=== PATIENT | male | born 1955 | race Caucasian/White ===

== ENCOUNTER 2017-06-09 14:49 | Inpatient (IN) | payer OTHER ==
[2017-06-09 16:05] LABS: INR 1.16; PARTIAL THROMBOPLASTIN TIME 31.6 Sec (25.0-35.0); PT RATIO 1.2
[2017-06-09 16:09] LABS: WHITE BLOOD COUNT 6.1 10^3/ul (4.8-10.8)
[2017-06-09 16:09] LABS: ABNORMAL IP MESSAGE 1; HEMATOCRIT 21.1 % (42.0-52.0); MEAN CORPUSCULAR HEMOGLOBIN 28.9 pg (29.0-33.0); MEAN CORPUSCULAR HGB CONC 31.3 g/dl (32.0-37.0); MEAN CORPUSCULAR VOLUME 92.5 fl (82.0-101.0); NUCLEATED RED BLOOD CELLS% 3.1 /100WBC (0.0-0.0); PLATELET COUNT 84 10^3/UL (140-415); POSITIVE DIFF @See below; RED BLOOD COUNT 2.28 10^6/ul (4.70-6.10); RED CELL DISTRIBUTION WIDTH 17.7 % (11.5-14.5)
[2017-06-09 16:12] LABS: ALANINE AMINOTRANSFERASE 23 IU/L (13-69); ALBUMIN 2.9 g/dl (3.3-4.9); ANION GAP 17 (8-16); ASPARTATE AMINO TRANSFERASE 116 IU/L (15-46); BILIRUBIN,INDIRECT 0.2 mg/dl (0-1.1); BILIRUBIN,TOTAL 0.2 mg/dl (0.2-1.3); BLOOD UREA NITROGEN 26 mg/dl (7-20); CALCIUM 8.3 mg/dl (8.4-10.2); CARBON DIOXIDE 25 mmol/L (21-31); CHLORIDE 103 mmol/L (97-110); CREATININE 0.87 mg/dl (0.61-1.24); GLUCOSE 109 mg/dl (70-220); POTASSIUM 3.8 mmol/L (3.5-5.1); SODIUM 141 mmol/L (135-144); TOTAL PROTEIN 6.1 g/dl (6.1-8.1)
[2017-06-09 16:12] LABS: LACTIC ACID 2.8 mmol/L (0.5-2.0)
[2017-06-09 16:13] LABS: ADD MAN DIFF? YES; HEMOGLOBIN 6.6 g/dl (14.0-18.0)
[2017-06-09] MEDS: SODIUM CHLORIDE 0.9% 1L BAG IV* (16:30)
[2017-06-09] MEDS: CEFEPIME 2GM/50 ML (PMX) 50 ML IVPB (16:30)
[2017-06-09 16:33] LABS: ALKALINE PHOSPHATASE 1425 IU/L (42-121); TROPONIN-I < 0.012 ng/ml (0.00-0.12)
[2017-06-09 16:47] LABS: ANISOCYTOSIS 1+ (0-0); BAND NEUTROPHILS #M 0.5 10^3/ul (0.0-0.6); BAND NEUTROPHILS % (M) 9 % (0-4); BASOPHILS % (M) 1 % (0-2); EOSINOPHILS % (M) 1 % (0-7); ERYTHROBLAST% (NRBC) (M) 4 % (0-0); HYPOCHROMASIA 2+ (0-0); LYMPHOCYTES #M 1.7 10^3/ul (0.8-2.9); LYMPHOCYTES % (M) 28 % (15-51); METAMYELOCYTES #M 0.1 10^3/ul (0.0-0.0); METAMYELOCYTES %M 3 % (0-0); MONOCYTE #M 0.4 10^3/ul (0.3-0.9); MONOCYTES % (M) 8 % (0-11); MYELOCYTES #M 0.1 10^3/ul (0.0-0.0); MYELOCYTES % (M) 2 % (0-0); OVALOCYTES 1+ (0-0); PLATELET ESTIMATE DECREASED; POIKILOCYTOSIS 1+ (0-0); POLYCHROMASIA 1+ (0-0); SEGMENTED NEUTROPHILS (M) % 48 % (39-77); SMUDGE%M 2 % (0-0); TEAR DROP CELLS 1+ (0-0)
[2017-06-09 17:32] LABS: LACTIC ACID 1.8 mmol/L (0.5-2.0)
[2017-06-09 17:58] LABS: IMMEDIATE SPIN CROSSMATCH 1 6
[2017-06-09 19:32] LABS: LACTIC ACID 1.5 mmol/L (0.5-2.0)
[2017-06-09 20:20] LABS: ADD UMIC YES; UR ASCORBIC ACID NEGATIVE (NEGATIVE); UR BACTERIA MANY /HPF (NONE SEEN); UR BILIRUBIN (Dip) NEGATIVE (NEGATIVE); UR BLOOD (Dip) 2+ mg/dL (NEGATIVE); UR CLARITY CLOUDY (CLEAR); UR COLOR AMBER (YELLOW); UR GLUCOSE (Dip) NEGATIVE (NEGATIVE); UR KETONES (Dip) NEGATIVE (NEGATIVE); UR LEUKOCYTE ESTERASE (Dip) 3+ Leu/ul (NEGATIVE); UR MUCUS MODERATE /HPF (NONE SEEN); UR NITRITE (Dip) POSITIVE (NEGATIVE); UR NONSQUAMOUS EPITHELIAL CELL 1 /HPF (NONE SEEN); UR RBC 6 /HPF (0-5); UR SPECIFIC GRAVITY (Dip) 1.014 (1.003-1.030); UR TOTAL PROTEIN (Dip) 2+ mg/dl (NEGATIVE); UR UROBILINOGEN (Dip) 1+ mg/dL (NEGATIVE); UR WBC > 182 /HPF (0-5)
[2017-06-10] MEDS ORDERED: NACL 0.9% 3 ML SYG IV (02:30)
[2017-06-10 04:06] LABS: WHITE BLOOD COUNT 5.5 10^3/ul (4.8-10.8)
[2017-06-10 04:06] LABS: ABNORMAL IP MESSAGE 1; HEMATOCRIT 22.4 % (42.0-52.0); HEMOGLOBIN 7.3 g/dl (14.0-18.0); MEAN CORPUSCULAR HEMOGLOBIN 29.6 pg (29.0-33.0); MEAN CORPUSCULAR HGB CONC 32.6 g/dl (32.0-37.0); MEAN CORPUSCULAR VOLUME 90.7 fl (82.0-101.0); MEAN PLATELET VOLUME 8.9 fl (7.4-10.4); NUCLEATED RED BLOOD CELLS% 3.3 /100WBC (0.0-0.0); PLATELET COUNT 64 10^3/UL (140-415); POSITIVE DIFF @See below; RED BLOOD COUNT 2.47 10^6/ul (4.70-6.10); RED CELL DISTRIBUTION WIDTH 17.3 % (11.5-14.5)
[2017-06-10 04:10] LABS: ALANINE AMINOTRANSFERASE 27 IU/L (13-69); ALBUMIN 2.6 g/dl (3.3-4.9); ALBUMIN/GLOBULIN RATIO 0.86; ALKALINE PHOSPHATASE 1272 IU/L (42-121); ANION GAP 15 (8-16); ASPARTATE AMINO TRANSFERASE 88 IU/L (15-46); BILIRUBIN,INDIRECT 0.5 mg/dl (0-1.1); BILIRUBIN,TOTAL 0.5 mg/dl (0.2-1.3); BLOOD UREA NITROGEN 21 mg/dl (7-20); CALCIUM 8.3 mg/dl (8.4-10.2); CARBON DIOXIDE 24 mmol/L (21-31); CHLORIDE 107 mmol/L (97-110); CREATININE 0.76 mg/dl (0.61-1.24); GLUCOSE 118 mg/dl (70-220); POTASSIUM 3.7 mmol/L (3.5-5.1); SODIUM 142 mmol/L (135-144); TOTAL PROTEIN 5.6 g/dl (6.1-8.1)
[2017-06-10] MEDS: SOD CHLORIDE 0.9% 1,000 ML IV (04:10)
[2017-06-10 04:33] LABS: ADD MAN DIFF? YES
[2017-06-10 05:15] LABS: ANISOCYTOSIS 1+ (0-0); BAND NEUTROPHILS #M 0.3 10^3/ul (0.0-0.6); BAND NEUTROPHILS % (M) 7 % (0-4); BURR CELLS 1+ (0-0); EOSINOPHILS % (M) 2 % (0-7); ERYTHROBLAST% (NRBC) (M) 4 % (0-0); LYMPHOCYTES % (M) 19 % (15-51); METAMYELOCYTES #M 0.2 10^3/ul (0.0-0.0); METAMYELOCYTES %M 4 % (0-0); MICROCYTOSIS 2+ (0-0); MONOCYTE #M 0.1 10^3/ul (0.3-0.9); MONOCYTES % (M) 2 % (0-11); MYELOCYTES #M 0.2 10^3/ul (0.0-0.0); MYELOCYTES % (M) 5 % (0-0); OVALOCYTES 1+ (0-0); PLATELET ESTIMATE DECREASED; POIKILOCYTOSIS 1+ (0-0); POLYCHROMASIA 1+ (0-0); SEG NEUT #M 3.4 10^3/ul (1.6-7.5); SEGMENTED NEUTROPHILS (M) % 62 % (39-77); SMUDGE%M 9 % (0-0); TEAR DROP CELLS 1+ (0-0)
[2017-06-10 05:43] LABS: ADD MAN DIFF? NO
[2017-06-10 05:51] LABS: WHITE BLOOD COUNT 6.1 10^3/ul (4.8-10.8)
[2017-06-10 05:51] LABS: ABNORMAL IP MESSAGE 1; BASOPHILS % 0.3 % (0.0-2.0); EOSINOPHILS # 0.1 10^3/ul (0.0-0.5); HEMATOCRIT 24.5 % (42.0-52.0); HEMOGLOBIN 7.8 g/dl (14.0-18.0); LYMPHOCYTES # 1.2 10^3/ul (0.8-2.9); LYMPHOCYTES % 19.1 % (15.0-51.0); MEAN CORPUSCULAR HGB CONC 31.8 g/dl (32.0-37.0); MEAN CORPUSCULAR VOLUME 91.1 fl (82.0-101.0); MEAN PLATELET VOLUME 9.8 fl (7.4-10.4); MONOCYTE # 0.4 10^3/ul (0.3-0.9); NEUTROPHIL # 3.8 10^3/ul (1.6-7.5); NEUTROPHILS % 62.9 % (39.0-77.0); NUCLEATED RED BLOOD CELLS # 0.2 10^3/ul (0.0-0.0); NUCLEATED RED BLOOD CELLS% 3.4 /100WBC (0.0-0.0); PLATELET COUNT 72 10^3/UL (140-415); POSITIVE DIFF @See below; RED BLOOD COUNT 2.69 10^6/ul (4.70-6.10); RED CELL DISTRIBUTION WIDTH 17.3 % (11.5-14.5)
[2017-06-10 06:14] LABS: IRON 83 ug/dl (35-150)
[2017-06-10 06:16] LABS: ALANINE AMINOTRANSFERASE 25 IU/L (13-69); ALBUMIN/GLOBULIN RATIO 1.11; ALKALINE PHOSPHATASE 1309 IU/L (42-121); ANION GAP 14 (8-16); ASPARTATE AMINO TRANSFERASE 88 IU/L (15-46); BILIRUBIN,INDIRECT 0.3 mg/dl (0-1.1); BILIRUBIN,TOTAL 0.3 mg/dl (0.2-1.3); BLOOD UREA NITROGEN 21 mg/dl (7-20); CALCIUM 8.4 mg/dl (8.4-10.2); CARBON DIOXIDE 25 mmol/L (21-31); CHLORIDE 106 mmol/L (97-110); CREATININE 0.75 mg/dl (0.61-1.24); GLUCOSE 95 mg/dl (70-220); MAGNESIUM 1.9 mg/dl (1.7-2.5); POTASSIUM 3.8 mmol/L (3.5-5.1); SODIUM 141 mmol/L (135-144); TOTAL PROTEIN 5.7 g/dl (6.1-8.1)
[2017-06-10 06:24] LABS: % IRON SATURATION 39 % SAT (22-52); TOTAL IRON BINDING CAPACITY 214 ug/dl (241-421)
[2017-06-10 07:17] LABS: ANISOCYTOSIS 1+ (0-0); BAND NEUTROPHILS #M 1.1 10^3/ul (0.0-0.6); BAND NEUTROPHILS % (M) 19 % (0-4); EOSINOPHILS % (M) 1 % (0-7); ERYTHROBLAST% (NRBC) (M) 3 % (0-0); GIANT THROMBO% (M) 1 % (0-0); LYMPHOCYTES #M 1.2 10^3/ul (0.8-2.9); LYMPHOCYTES % (M) 20 % (15-51); MICROCYTOSIS 1+ (0-0); MONOCYTE #M 0.1 10^3/ul (0.3-0.9); MONOCYTES % (M) 3 % (0-11); MYELOCYTES % (M) 1 % (0-0); PLATELET ESTIMATE DECREASED; POIKILOCYTOSIS 1+ (0-0); SEG NEUT #M 3.5 10^3/ul (1.6-7.5); SEGMENTED NEUTROPHILS (M) % 56 % (39-77); SMUDGE%M 11 % (0-0)
[2017-06-10 12:01] LABS: OCCULT BLOOD STOOL NEGATIVE (NEGATIVE)
[2017-06-10] MEDS: HYDROCODONE/APAP (5/325) TAB PO (12:21)
[2017-06-10] MEDS: morphine 2 MG INJ IV (20:50)
[2017-06-11 06:25] LABS: ADD MAN DIFF? NO
[2017-06-11 06:28] LABS: WHITE BLOOD COUNT 6.4 10^3/ul (4.8-10.8)
[2017-06-11 06:28] LABS: ABNORMAL IP MESSAGE 1; BASOPHILS % 0.3 % (0.0-2.0); EOSINOPHILS # 0.1 10^3/ul (0.0-0.5); EOSINOPHILS % 0.8 % (0.0-7.0); HEMATOCRIT 27.5 % (42.0-52.0); HEMOGLOBIN 9.1 g/dl (14.0-18.0); LYMPHOCYTES # 1.3 10^3/ul (0.8-2.9); LYMPHOCYTES % 20.4 % (15.0-51.0); MEAN CORPUSCULAR HEMOGLOBIN 29.4 pg (29.0-33.0); MEAN CORPUSCULAR HGB CONC 33.1 g/dl (32.0-37.0); MEAN PLATELET VOLUME 9.3 fl (7.4-10.4); MONOCYTE # 0.4 10^3/ul (0.3-0.9); MONOCYTES % 5.7 % (0.0-11.0); NEUTROPHIL # 4.1 10^3/ul (1.6-7.5); NEUTROPHILS % 63.9 % (39.0-77.0); NUCLEATED RED BLOOD CELLS # 0.2 10^3/ul (0.0-0.0); PLATELET COUNT 60 10^3/UL (140-415); POSITIVE DIFF @See below; RED BLOOD COUNT 3.09 10^6/ul (4.70-6.10)
[2017-06-11 06:59] LABS: ANION GAP 15 (8-16); BLOOD UREA NITROGEN 17 mg/dl (7-20); CALCIUM 8.3 mg/dl (8.4-10.2); CARBON DIOXIDE 22 mmol/L (21-31); CHLORIDE 109 mmol/L (97-110); CREATININE 0.73 mg/dl (0.61-1.24); GLUCOSE 98 mg/dl (70-220); MAGNESIUM 1.8 mg/dl (1.7-2.5); PHOSPHORUS 2.8 mg/dl (2.5-4.9); POTASSIUM 3.7 mmol/L (3.5-5.1); SODIUM 142 mmol/L (135-144)
[2017-06-11 08:10] LABS: ANISOCYTOSIS 2+ (0-0); BAND NEUTROPHILS #M 0.7 10^3/ul (0.0-0.6); GIANT THROMBO% (M) 1 % (0-0); MICROCYTOSIS 2+ (0-0); MONOCYTES % (M) 1 % (0-11)
[2017-06-11] MEDS: morphine 2 MG INJ IV ×2 (09:31→17:59)
[2017-06-11 09:37] LABS: BAND NEUTROPHILS % (M) 12 % (0-4); BURR CELLS 1+ (0-0); ERYTHROBLAST% (NRBC) (M) 3 % (0-0); LYMPHOCYTES % (M) 16 % (15-51); MYELOCYTES % (M) 1 % (0-0); PLATELET ESTIMATE SIG DECREASED; POIKILOCYTOSIS 1+ (0-0); POLYCHROMASIA 3+ (0-0); PROMYELOCYTES % (M) 1 % (0-0); SEG NEUT #M 4.5 10^3/ul (1.6-7.5); SEGMENTED NEUTROPHILS (M) % 70 % (39-77); SMUDGE%M 10 % (0-0)
[2017-06-11] MEDS ORDERED: PENDING SANTYL ORDER FOR WOUND CARE XX ×2 (10:30)
[2017-06-11] MEDS: COLLAGENASE 30 GM TUBE TOP ×3 (11:00→20:06)
[2017-06-12] MEDS: COLLAGENASE 30 GM TUBE TOP (09:13)
[2017-06-12] MEDS: HYDROCODONE/APAP (5/325) TAB PO ×2 (14:25→21:32)
[2017-06-13] MEDS: COLLAGENASE 30 GM TUBE TOP (09:33)
[2017-06-13] MEDS: HYDROCODONE/APAP (5/325) TAB PO ×2 (12:42→21:24)
[2017-06-14] MEDS: HYDROCODONE/APAP (5/325) TAB PO ×2 (06:17→13:52)
[2017-06-14] MEDS: COLLAGENASE 30 GM TUBE TOP (09:32)
[2017-06-14] MEDS: AL HYDROX/MG HYDROX/SIMETH 30 ML CUP PO ×2 (12:25→19:17)
[2017-06-14] MEDS: morphine LIQ (10 MG/5 ML) CUP PO (21:30)
[2017-06-15] MEDS: HYDROCODONE/APAP (5/325) TAB PO ×2 (05:45→20:01)
[2017-06-15] MEDS: COLLAGENASE 30 GM TUBE TOP (09:31)
[2017-06-15] MEDS: morphine LIQ (10 MG/5 ML) CUP PO (23:39)
[2017-06-16] MEDS: COLLAGENASE 30 GM TUBE TOP (09:00)
[2017-06-16] MEDS: morphine LIQ (10 MG/5 ML) CUP PO ×2 (12:53→22:06)
[2017-06-16] MEDS: AL HYDROX/MG HYDROX/SIMETH 30 ML CUP PO (18:42)
[2017-06-17] MEDS: COLLAGENASE 30 GM TUBE TOP (09:00)
[2017-06-17] MEDS: morphine LIQ (10 MG/5 ML) CUP PO (17:59)
[2017-06-17] MEDS: AL HYDROX/MG HYDROX/SIMETH 30 ML CUP PO (20:22)
[2017-06-18] MEDS: morphine LIQ (10 MG/5 ML) CUP PO ×2 (02:01→14:27)
[2017-06-18] MEDS: COLLAGENASE 30 GM TUBE TOP (09:00)
[2017-06-19] MEDS: morphine LIQ (10 MG/5 ML) CUP PO ×2 (02:36→23:36)
[2017-06-19] MEDS: COLLAGENASE 30 GM TUBE TOP (08:50)
[2017-06-19 15:11] LABS: CREATINE KINASE 23 IU/L (23-200); MAGNESIUM 1.8 mg/dl (1.7-2.5)
[2017-06-19 15:11] LABS: PHOSPHORUS 2.8 mg/dl (2.5-4.9)
[2017-06-19 15:24] LABS: CK INDEX 1.8; TROPONIN-I 0.022 ng/ml (0.00-0.12)
[2017-06-19 15:26] LABS: CK-MB 0.42 ng/ml (0.0-2.4)
[2017-06-19 15:29] LABS: FREE THYROXINE INDEX (Calc) 2.36 ug/ml (0.65-3.89); T3 UPTAKE 42.1 % (23.5-40.5); T4 (THYROXINE) 5.6 ug/dl (5.5-11.0)
[2017-06-19 15:45] LABS: ALANINE AMINOTRANSFERASE 80 IU/L (13-69); ALBUMIN 2.5 g/dl (3.3-4.9); ALKALINE PHOSPHATASE 870 IU/L (42-121); ASPARTATE AMINO TRANSFERASE 170 IU/L (15-46); BILIRUBIN,INDIRECT 0.1 mg/dl (0-1.1); BILIRUBIN,TOTAL 0.1 mg/dl (0.2-1.3); TOTAL PROTEIN 5.1 g/dl (6.1-8.1)
[2017-06-19 15:46] LABS: D-DIMER > 10000.00 ng/ml (<460)
[2017-06-19 15:52] LABS: INR 1.19; PROTIME 15.3 Sec (11.9-14.9); PT RATIO 1.2
[2017-06-19 15:53] LABS: PARTIAL THROMBOPLASTIN TIME 24.9 Sec (25.0-35.0)
[2017-06-19 20:46] LABS: CREATINE KINASE 21 IU/L (23-200)
[2017-06-19 20:59] LABS: CK INDEX 2.5; CK-MB 0.52 ng/ml (0.0-2.4); TROPONIN-I 0.019 ng/ml (0.00-0.12)
[2017-06-20 02:36] LABS: CREATINE KINASE 21 IU/L (23-200)
[2017-06-20 02:49] LABS: CK INDEX 2.5; TROPONIN-I 0.019 ng/ml (0.00-0.12)
[2017-06-20 02:50] LABS: CK-MB 0.52 ng/ml (0.0-2.4)
[2017-06-20 09:10] LABS: ABNORMAL IP MESSAGE 1; HEMATOCRIT 24.2 % (42.0-52.0); HEMOGLOBIN 7.6 g/dl (14.0-18.0); MEAN CORPUSCULAR HEMOGLOBIN 29.8 pg (29.0-33.0); MEAN CORPUSCULAR HGB CONC 31.4 g/dl (32.0-37.0); MEAN CORPUSCULAR VOLUME 94.9 fl (82.0-101.0); MEAN PLATELET VOLUME 10.5 fl (7.4-10.4); NUCLEATED RED BLOOD CELLS% 1.8 /100WBC (0.0-0.0); PLATELET COUNT 96 10^3/UL (140-415); POSITIVE DIFF @See below; RED BLOOD COUNT 2.55 10^6/ul (4.70-6.10)
[2017-06-20 09:10] LABS: WHITE BLOOD COUNT 5.1 10^3/ul (4.8-10.8)
[2017-06-20 09:17] LABS: ADD MAN DIFF? YES
[2017-06-20 09:24] LABS: ANION GAP 11 (8-16); BLOOD UREA NITROGEN 15 mg/dl (7-20); CALCIUM 7.9 mg/dl (8.4-10.2); CARBON DIOXIDE 26 mmol/L (21-31); CHLORIDE 104 mmol/L (97-110); GLUCOSE 84 mg/dl (70-220); POTASSIUM 4.1 mmol/L (3.5-5.1); SODIUM 137 mmol/L (135-144)
[2017-06-20 10:00] LABS: ANISOCYTOSIS 2+ (0-0); BAND NEUTROPHILS #M 0.4 10^3/ul (0.0-0.6); BAND NEUTROPHILS % (M) 8 % (0-4); EOSINOPHILS % (M) 1 % (0-7); ERYTHROBLAST% (NRBC) (M) 5 % (0-0); LYMPHOCYTES #M 0.8 10^3/ul (0.8-2.9); LYMPHOCYTES % (M) 17 % (15-51); METAMYELOCYTES #M 0.1 10^3/ul (0.0-0.0); METAMYELOCYTES %M 2 % (0-0); MICROCYTOSIS 2+ (0-0); MONOCYTE #M 0.2 10^3/ul (0.3-0.9); MONOCYTES % (M) 5 % (0-11); PLATELET ESTIMATE DECREASED; POIKILOCYTOSIS 1+ (0-0); POLYCHROMASIA 3+ (0-0); SEG NEUT #M 3.4 10^3/ul (1.6-7.5); SEGMENTED NEUTROPHILS (M) % 67 % (39-77); SMUDGE%M 7 % (0-0)
[2017-06-20] MEDS: COLLAGENASE 30 GM TUBE TOP (10:18)
[2017-06-20] MEDS: IOHEXOL 100 ML (18:52)
[2017-06-20] MEDS: SOD CHLORIDE 0.9% 100 ML (18:52)
[2017-06-20 21:48] LABS: MAGNESIUM 1.7 mg/dl (1.7-2.5)
[2017-06-20 21:48] LABS: PHOSPHORUS 2.8 mg/dl (2.5-4.9)
[2017-06-20] MEDS: SOD CHLORIDE 0.9% 1,000 ML IV (22:01)
[2017-06-20] MEDS: MAGNESIUM SULFATE 1 GM/D5W 100 ML IVPB (22:01)
[2017-06-20] MEDS: IOHEXOL 300MG/ML 30 ML BTL (22:01)
[2017-06-20] MEDS: morphine LIQ (10 MG/5 ML) CUP PO (22:02)
[2017-06-21 06:42] LABS: ADD UMIC YES; UR ASCORBIC ACID NEGATIVE (NEGATIVE); UR BACTERIA FEW /HPF (NONE SEEN); UR BILIRUBIN (Dip) NEGATIVE (NEGATIVE); UR BLOOD (Dip) 2+ mg/dL (NEGATIVE); UR CLARITY SLIGHTLY CLOUDY (CLEAR); UR COLOR YELLOW (YELLOW); UR GLUCOSE (Dip) NEGATIVE (NEGATIVE); UR KETONES (Dip) NEGATIVE (NEGATIVE); UR LEUKOCYTE ESTERASE (Dip) 3+ Leu/ul (NEGATIVE); UR MUCUS FEW /HPF (NONE SEEN); UR NITRITE (Dip) NEGATIVE (NEGATIVE); UR RBC 16 /HPF (0-5); UR SPECIFIC GRAVITY (Dip) 1.053 (1.003-1.030); UR TOTAL PROTEIN (Dip) NEGATIVE (NEGATIVE); UR UROBILINOGEN (Dip) NEGATIVE (NEGATIVE); UR WBC 35 /HPF (0-5)
[2017-06-21] MEDS: SOD CHLORIDE 0.9% 1,000 ML IV ×2 (08:11→20:00)
[2017-06-21 08:48] LABS: ABNORMAL IP MESSAGE 1; HEMATOCRIT 22.6 % (42.0-52.0); HEMOGLOBIN 7.1 g/dl (14.0-18.0); MEAN CORPUSCULAR HEMOGLOBIN 29.6 pg (29.0-33.0); MEAN CORPUSCULAR HGB CONC 31.4 g/dl (32.0-37.0); MEAN CORPUSCULAR VOLUME 94.2 fl (82.0-101.0); MEAN PLATELET VOLUME 9.4 fl (7.4-10.4); NUCLEATED RED BLOOD CELLS% 1.6 /100WBC (0.0-0.0); PLATELET COUNT 73 10^3/UL (140-415); POSITIVE DIFF @See below; RED CELL DISTRIBUTION WIDTH 16.7 % (11.5-14.5)
[2017-06-21 08:48] LABS: WHITE BLOOD COUNT 4.9 10^3/ul (4.8-10.8)
[2017-06-21 08:59] LABS: ADD MAN DIFF? YES
[2017-06-21 09:13] LABS: ANION GAP 11 (8-16); BLOOD UREA NITROGEN 10 mg/dl (7-20); CALCIUM 7.9 mg/dl (8.4-10.2); CARBON DIOXIDE 25 mmol/L (21-31); CHLORIDE 106 mmol/L (97-110); CREATININE 0.49 mg/dl (0.61-1.24); GLUCOSE 88 mg/dl (70-220); POTASSIUM 3.6 mmol/L (3.5-5.1); SODIUM 138 mmol/L (135-144)
[2017-06-21 09:51] LABS: ANISOCYTOSIS 1+ (0-0); BAND NEUTROPHILS #M 0.5 10^3/ul (0.0-0.6); BAND NEUTROPHILS % (M) 11 % (0-4); EOSINOPHILS % (M) 1 % (0-7); ERYTHROBLAST% (NRBC) (M) 1 % (0-0); GIANT THROMBO% (M) 1 % (0-0); LYMPHOCYTES #M 0.6 10^3/ul (0.8-2.9); LYMPHOCYTES % (M) 14 % (15-51); METAMYELOCYTES #M 0.1 10^3/ul (0.0-0.0); METAMYELOCYTES %M 4 % (0-0); MICROCYTOSIS 1+ (0-0); MONOCYTES % (M) 2 % (0-11); MYELOCYTES #M 0.2 10^3/ul (0.0-0.0); MYELOCYTES % (M) 5 % (0-0); PLATELET ESTIMATE DECREASED; POIKILOCYTOSIS 1+ (0-0); POLYCHROMASIA 3+ (0-0); PROMYELOCYTES % (M) 1 % (0-0); REACTIVE LYMPHOCYTES% (M) 1 % (0-0); SEGMENTED NEUTROPHILS (M) % 61 % (39-77); SMUDGE%M 8 % (0-0)
[2017-06-21] MEDS: COLLAGENASE 30 GM TUBE TOP (10:53)
[2017-06-21 13:52] LABS: IMMEDIATE SPIN CROSSMATCH 1 1
[2017-06-21] MEDS: morphine LIQ (10 MG/5 ML) CUP PO (21:56)
[2017-06-22] MEDS: SOD CHLORIDE 0.9% 1,000 ML IV ×2 (04:08→21:00)
[2017-06-22 06:53] LABS: ADD MAN DIFF? NO
[2017-06-22 06:58] LABS: WHITE BLOOD COUNT 5.2 10^3/ul (4.8-10.8)
[2017-06-22 06:58] LABS: ABNORMAL IP MESSAGE 1; BASOPHILS % 0.6 % (0.0-2.0); EOSINOPHILS % 0.6 % (0.0-7.0); HEMOGLOBIN 7.9 g/dl (14.0-18.0); LYMPHOCYTES # 1.1 10^3/ul (0.8-2.9); LYMPHOCYTES % 20.3 % (15.0-51.0); MEAN CORPUSCULAR HEMOGLOBIN 29.3 pg (29.0-33.0); MEAN CORPUSCULAR HGB CONC 31.6 g/dl (32.0-37.0); MEAN CORPUSCULAR VOLUME 92.6 fl (82.0-101.0); MEAN PLATELET VOLUME 9.7 fl (7.4-10.4); MONOCYTE # 0.4 10^3/ul (0.3-0.9); NEUTROPHIL # 3.1 10^3/ul (1.6-7.5); NEUTROPHILS % 60.3 % (39.0-77.0); NUCLEATED RED BLOOD CELLS # 0.1 10^3/ul (0.0-0.0); NUCLEATED RED BLOOD CELLS% 2.1 /100WBC (0.0-0.0); PLATELET COUNT 75 10^3/UL (140-415); POSITIVE DIFF @See below; RED CELL DISTRIBUTION WIDTH 17.2 % (11.5-14.5)
[2017-06-22 07:20] LABS: ANION GAP 13 (8-16); BLOOD UREA NITROGEN 9 mg/dl (7-20); CARBON DIOXIDE 23 mmol/L (21-31); CHLORIDE 107 mmol/L (97-110); CREATININE 0.43 mg/dl (0.61-1.24); GLUCOSE 90 mg/dl (70-220); POTASSIUM 3.6 mmol/L (3.5-5.1); SODIUM 139 mmol/L (135-144)
[2017-06-22] MEDS: COLLAGENASE 30 GM TUBE TOP (09:20)
[2017-06-22] MEDS: morphine LIQ (10 MG/5 ML) CUP PO (14:15)
[2017-06-23] MEDS: morphine LIQ (10 MG/5 ML) CUP PO ×2 (00:32→18:48)
[2017-06-23 07:48] LABS: ADD MAN DIFF? NO
[2017-06-23 07:51] LABS: WHITE BLOOD COUNT 5.7 10^3/ul (4.8-10.8)
[2017-06-23 07:51] LABS: ABNORMAL IP MESSAGE 1; BASOPHILS % 0.4 % (0.0-2.0); EOSINOPHILS % 0.7 % (0.0-7.0); HEMATOCRIT 24.7 % (42.0-52.0); HEMOGLOBIN 7.8 g/dl (14.0-18.0); LYMPHOCYTES # 1.2 10^3/ul (0.8-2.9); LYMPHOCYTES % 20.5 % (15.0-51.0); MEAN CORPUSCULAR HEMOGLOBIN 29.4 pg (29.0-33.0); MEAN CORPUSCULAR HGB CONC 31.6 g/dl (32.0-37.0); MEAN CORPUSCULAR VOLUME 93.2 fl (82.0-101.0); MEAN PLATELET VOLUME 9.5 fl (7.4-10.4); MONOCYTE # 0.5 10^3/ul (0.3-0.9); NEUTROPHIL # 3.3 10^3/ul (1.6-7.5); NEUTROPHILS % 58.2 % (39.0-77.0); NUCLEATED RED BLOOD CELLS # 0.1 10^3/ul (0.0-0.0); NUCLEATED RED BLOOD CELLS% 1.9 /100WBC (0.0-0.0); PLATELET COUNT 61 10^3/UL (140-415); POSITIVE DIFF @See below; RED BLOOD COUNT 2.65 10^6/ul (4.70-6.10); RED CELL DISTRIBUTION WIDTH 16.8 % (11.5-14.5)
[2017-06-23 08:16] LABS: ANION GAP 11 (8-16); BLOOD UREA NITROGEN 8 mg/dl (7-20); CALCIUM 7.7 mg/dl (8.4-10.2); CARBON DIOXIDE 26 mmol/L (21-31); CHLORIDE 106 mmol/L (97-110); CREATININE 0.42 mg/dl (0.61-1.24); GLUCOSE 89 mg/dl (70-220); POTASSIUM 3.4 mmol/L (3.5-5.1); SODIUM 140 mmol/L (135-144)
[2017-06-23] MEDS: COLLAGENASE 30 GM TUBE TOP (08:38)
[2017-06-23] MEDS: SOD CHLORIDE 0.9% 1,000 ML IV ×2 (08:38→22:00)
[2017-06-23] MEDS: POTASSIUM CHLORIDE (SR) 20 MEQ TAB PO (20:55)
[2017-06-24 08:44] LABS: ADD MAN DIFF? NO
[2017-06-24 08:49] LABS: ABNORMAL IP MESSAGE 1; BASOPHILS % 0.2 % (0.0-2.0); EOSINOPHILS % 0.7 % (0.0-7.0); HEMATOCRIT 24.9 % (42.0-52.0); HEMOGLOBIN 7.8 g/dl (14.0-18.0); LYMPHOCYTES # 1.1 10^3/ul (0.8-2.9); MEAN CORPUSCULAR HEMOGLOBIN 29.2 pg (29.0-33.0); MEAN CORPUSCULAR HGB CONC 31.3 g/dl (32.0-37.0); MEAN CORPUSCULAR VOLUME 93.3 fl (82.0-101.0); MEAN PLATELET VOLUME 10.8 fl (7.4-10.4); MONOCYTE # 0.5 10^3/ul (0.3-0.9); MONOCYTES % 8.1 % (0.0-11.0); NEUTROPHIL # 3.5 10^3/ul (1.6-7.5); NEUTROPHILS % 60.6 % (39.0-77.0); NUCLEATED RED BLOOD CELLS # 0.1 10^3/ul (0.0-0.0); NUCLEATED RED BLOOD CELLS% 1.9 /100WBC (0.0-0.0); PLATELET COUNT 70 10^3/UL (140-415); POSITIVE DIFF @See below; RED BLOOD COUNT 2.67 10^6/ul (4.70-6.10); RED CELL DISTRIBUTION WIDTH 17.2 % (11.5-14.5)
[2017-06-24 08:49] LABS: WHITE BLOOD COUNT 5.8 10^3/ul (4.8-10.8)
[2017-06-24 09:17] LABS: ANION GAP 14 (8-16); BLOOD UREA NITROGEN 7 mg/dl (7-20); CALCIUM 7.8 mg/dl (8.4-10.2); CARBON DIOXIDE 24 mmol/L (21-31); CHLORIDE 105 mmol/L (97-110); CREATININE 0.41 mg/dl (0.61-1.24); GLUCOSE 89 mg/dl (70-220); POTASSIUM 3.6 mmol/L (3.5-5.1); SODIUM 139 mmol/L (135-144)
[2017-06-24] MEDS: COLLAGENASE 30 GM TUBE TOP (09:38)
[2017-06-24] MEDS: SOD CHLORIDE 0.9% 1,000 ML IV ×2 (10:30→23:00)
[2017-06-24] MEDS: morphine LIQ (10 MG/5 ML) CUP PO (21:30)
[2017-06-25 07:36] LABS: ADD MAN DIFF? NO
[2017-06-25 07:38] LABS: WHITE BLOOD COUNT 6.3 10^3/ul (4.8-10.8)
[2017-06-25 07:38] LABS: ABNORMAL IP MESSAGE 1; BASOPHILS % 0.3 % (0.0-2.0); EOSINOPHILS % 0.3 % (0.0-7.0); HEMOGLOBIN 7.6 g/dl (14.0-18.0); LYMPHOCYTES # 1.2 10^3/ul (0.8-2.9); LYMPHOCYTES % 19.7 % (15.0-51.0); MEAN CORPUSCULAR HEMOGLOBIN 29.6 pg (29.0-33.0); MEAN CORPUSCULAR HGB CONC 31.7 g/dl (32.0-37.0); MEAN CORPUSCULAR VOLUME 93.4 fl (82.0-101.0); MEAN PLATELET VOLUME 10.8 fl (7.4-10.4); MONOCYTE # 0.5 10^3/ul (0.3-0.9); MONOCYTES % 8.2 % (0.0-11.0); NEUTROPHIL # 3.8 10^3/ul (1.6-7.5); NEUTROPHILS % 60.8 % (39.0-77.0); NUCLEATED RED BLOOD CELLS # 0.1 10^3/ul (0.0-0.0); NUCLEATED RED BLOOD CELLS% 1.1 /100WBC (0.0-0.0); PLATELET COUNT 71 10^3/UL (140-415); POSITIVE DIFF @See below; RED BLOOD COUNT 2.57 10^6/ul (4.70-6.10); RED CELL DISTRIBUTION WIDTH 17.4 % (11.5-14.5)
[2017-06-25 07:59] LABS: ANION GAP 14 (8-16); BLOOD UREA NITROGEN 10 mg/dl (7-20); CALCIUM 7.8 mg/dl (8.4-10.2); CARBON DIOXIDE 23 mmol/L (21-31); CHLORIDE 105 mmol/L (97-110); CREATININE 0.39 mg/dl (0.61-1.24); GLUCOSE 93 mg/dl (70-220); POTASSIUM 3.6 mmol/L (3.5-5.1); SODIUM 138 mmol/L (135-144)
[2017-06-25] MEDS: COLLAGENASE 30 GM TUBE TOP (09:00)
[2017-06-25] MEDS: SOD CHLORIDE 0.9% 1,000 ML IV ×2 (11:30→22:08)
[2017-06-25] MEDS ORDERED: SALINE 0.65% 45 ML NAS SPRAY NASAL (18:30)
[2017-06-25] MEDS: GUAIFENESIN LA 600 MG TABSR PO (20:29)
[2017-06-25] MEDS: morphine LIQ (10 MG/5 ML) CUP PO (20:30)
[2017-06-26] MEDS: GUAIFENESIN LA 600 MG TABSR PO ×2 (08:46→20:17)
[2017-06-26] MEDS: COLLAGENASE 30 GM TUBE TOP (08:47)
[2017-06-26 09:33] LABS: ADD MAN DIFF? NO
[2017-06-26 09:42] LABS: WHITE BLOOD COUNT 6.8 10^3/ul (4.8-10.8)
[2017-06-26 09:42] LABS: ABNORMAL IP MESSAGE 1; BASOPHILS % 0.1 % (0.0-2.0); EOSINOPHILS % 0.3 % (0.0-7.0); HEMATOCRIT 23.6 % (42.0-52.0); HEMOGLOBIN 7.3 g/dl (14.0-18.0); LYMPHOCYTES % 15.2 % (15.0-51.0); MEAN CORPUSCULAR HGB CONC 30.9 g/dl (32.0-37.0); MEAN CORPUSCULAR VOLUME 93.7 fl (82.0-101.0); MONOCYTE # 0.6 10^3/ul (0.3-0.9); MONOCYTES % 8.1 % (0.0-11.0); NEUTROPHIL # 4.7 10^3/ul (1.6-7.5); NEUTROPHILS % 68.7 % (39.0-77.0); NUCLEATED RED BLOOD CELLS # 0.1 10^3/ul (0.0-0.0); PLATELET COUNT 81 10^3/UL (140-415); POSITIVE DIFF @See below; RED BLOOD COUNT 2.52 10^6/ul (4.70-6.10); RED CELL DISTRIBUTION WIDTH 17.3 % (11.5-14.5)
[2017-06-26 10:08] LABS: BLOOD UREA NITROGEN 9 mg/dl (7-20); CALCIUM 7.8 mg/dl (8.4-10.2); CARBON DIOXIDE 23 mmol/L (21-31); CHLORIDE 106 mmol/L (97-110); CREATININE 0.41 mg/dl (0.61-1.24); GLUCOSE 89 mg/dl (70-220); SODIUM 137 mmol/L (135-144)
[2017-06-26 10:19] LABS: ANION GAP 12 (8-16); POTASSIUM 3.6 mmol/L (3.5-5.1)
[2017-06-26] MEDS: SOD CHLORIDE 0.9% 1,000 ML IV ×2 (12:36→23:49)
[2017-06-26] MEDS: morphine LIQ (10 MG/5 ML) CUP PO (20:17)
[2017-06-27 06:52] LABS: ABNORMAL IP MESSAGE 1; HEMATOCRIT 22.3 % (42.0-52.0); MEAN CORPUSCULAR HEMOGLOBIN 29.4 pg (29.0-33.0); MEAN CORPUSCULAR HGB CONC 30.9 g/dl (32.0-37.0); MEAN CORPUSCULAR VOLUME 94.9 fl (82.0-101.0); MEAN PLATELET VOLUME 10.5 fl (7.4-10.4); NUCLEATED RED BLOOD CELLS% 1.4 /100WBC (0.0-0.0); PLATELET COUNT 84 10^3/UL (140-415); POSITIVE DIFF @See below; RED BLOOD COUNT 2.35 10^6/ul (4.70-6.10); RED CELL DISTRIBUTION WIDTH 17.3 % (11.5-14.5)
[2017-06-27 06:52] LABS: WHITE BLOOD COUNT 6.9 10^3/ul (4.8-10.8)
[2017-06-27 06:56] LABS: HEMOGLOBIN 6.9 g/dl (14.0-18.0)
[2017-06-27 06:57] LABS: ADD MAN DIFF? YES
[2017-06-27 07:32] LABS: ANISOCYTOSIS 2+ (0-0); BAND NEUTROPHILS #M 0.7 10^3/ul (0.0-0.6); BAND NEUTROPHILS % (M) 11 % (0-4); BASOPHILS % (M) 1 % (0-2); ERYTHROBLAST% (NRBC) (M) 1 % (0-0); GIANT THROMBO% (M) 3 % (0-0); LYMPHOCYTES #M 0.6 10^3/ul (0.8-2.9); LYMPHOCYTES % (M) 9 % (15-51); METAMYELOCYTES %M 1 % (0-0); MICROCYTOSIS 2+ (0-0); MONOCYTE #M 0.1 10^3/ul (0.3-0.9); MONOCYTES % (M) 2 % (0-11); PLATELET ESTIMATE DECREASED; POIKILOCYTOSIS 1+ (0-0); POLYCHROMASIA 1+ (0-0); SEG NEUT #M 5.3 10^3/ul (1.6-7.5); SEGMENTED NEUTROPHILS (M) % 76 % (39-77); SMUDGE%M 4 % (0-0); TEAR DROP CELLS 1+ (0-0)
[2017-06-27 07:34] LABS: ANION GAP 14 (8-16); BLOOD UREA NITROGEN 8 mg/dl (7-20); CALCIUM 7.7 mg/dl (8.4-10.2); CARBON DIOXIDE 22 mmol/L (21-31); CHLORIDE 107 mmol/L (97-110); CREATININE 0.37 mg/dl (0.61-1.24); GLUCOSE 88 mg/dl (70-220); POTASSIUM 3.6 mmol/L (3.5-5.1); SODIUM 139 mmol/L (135-144)
[2017-06-27] MEDS: CALCIUM GLUCONATE 10% 1 GM in DEXTROSE 5% 100 ML IVPB (12:40)
[2017-06-27] MEDS: GUAIFENESIN LA 600 MG TABSR PO ×2 (12:40→21:45)
[2017-06-27] MEDS: COLLAGENASE 30 GM TUBE TOP (12:40)
[2017-06-27] MEDS: morphine LIQ (10 MG/5 ML) CUP PO (14:05)
[2017-06-27] MEDS: SOD CHLORIDE 0.9% 1,000 ML IV (14:12)
[2017-06-27 14:27] LABS: IMMEDIATE SPIN CROSSMATCH 1 1
[2017-06-27 20:54] LABS: ADD MAN DIFF? NO
[2017-06-27 20:56] LABS: WHITE BLOOD COUNT 6.9 10^3/ul (4.8-10.8)
[2017-06-27 20:56] LABS: ABNORMAL IP MESSAGE 1; BASOPHILS % 0.1 % (0.0-2.0); EOSINOPHILS % 0.4 % (0.0-7.0); HEMATOCRIT 23.6 % (42.0-52.0); HEMOGLOBIN 7.4 g/dl (14.0-18.0); LYMPHOCYTES % 14.8 % (15.0-51.0); MEAN CORPUSCULAR HEMOGLOBIN 29.4 pg (29.0-33.0); MEAN CORPUSCULAR HGB CONC 31.4 g/dl (32.0-37.0); MEAN CORPUSCULAR VOLUME 93.7 fl (82.0-101.0); MEAN PLATELET VOLUME 9.3 fl (7.4-10.4); MONOCYTE # 0.6 10^3/ul (0.3-0.9); MONOCYTES % 8.1 % (0.0-11.0); NEUTROPHIL # 4.8 10^3/ul (1.6-7.5); NEUTROPHILS % 69.4 % (39.0-77.0); NUCLEATED RED BLOOD CELLS # 0.1 10^3/ul (0.0-0.0); PLATELET COUNT 89 10^3/UL (140-415); POSITIVE DIFF @See below; RED BLOOD COUNT 2.52 10^6/ul (4.70-6.10)
[2017-06-27 21:21] LABS: ANISOCYTOSIS 1+ (0-0); BAND NEUTROPHILS #M 0.8 10^3/ul (0.0-0.6); BAND NEUTROPHILS % (M) 13 % (0-4); BASOPHILS % (M) 1 % (0-2); ERYTHROBLAST% (NRBC) (M) 2 % (0-0); GIANT THROMBO% (M) 2 % (0-0); LYMPHOCYTES #M 0.7 10^3/ul (0.8-2.9); LYMPHOCYTES % (M) 11 % (15-51); METAMYELOCYTES #M 0.2 10^3/ul (0.0-0.0); METAMYELOCYTES %M 3 % (0-0); MICROCYTOSIS 1+ (0-0); MONOCYTE #M 0.7 10^3/ul (0.3-0.9); MONOCYTES % (M) 11 % (0-11); MYELOCYTES % (M) 1 % (0-0); OVALOCYTES 2+ (0-0); PLATELET ESTIMATE DECREASED; POIKILOCYTOSIS 1+ (0-0); POLYCHROMASIA 1+ (0-0); SEG NEUT #M 4.2 10^3/ul (1.6-7.5); SEGMENTED NEUTROPHILS (M) % 60 % (39-77); SMUDGE%M 5 % (0-0)
[2017-06-28] MEDS: morphine LIQ (10 MG/5 ML) CUP PO ×2 (04:11→14:10)
[2017-06-28] MEDS: SOD CHLORIDE 0.9% 1,000 ML IV ×4 (04:13→23:20)
[2017-06-28 06:20] LABS: ADD MAN DIFF? NO
[2017-06-28 06:29] LABS: WHITE BLOOD COUNT 6.8 10^3/ul (4.8-10.8)
[2017-06-28 06:29] LABS: ABNORMAL IP MESSAGE 1; BASOPHILS % 0.1 % (0.0-2.0); EOSINOPHILS % 0.6 % (0.0-7.0); HEMATOCRIT 24.4 % (42.0-52.0); HEMOGLOBIN 7.8 g/dl (14.0-18.0); LYMPHOCYTES # 1.2 10^3/ul (0.8-2.9); LYMPHOCYTES % 17.4 % (15.0-51.0); MEAN CORPUSCULAR HEMOGLOBIN 29.8 pg (29.0-33.0); MEAN CORPUSCULAR VOLUME 93.1 fl (82.0-101.0); MEAN PLATELET VOLUME 9.2 fl (7.4-10.4); MONOCYTE # 0.6 10^3/ul (0.3-0.9); MONOCYTES % 8.2 % (0.0-11.0); NEUTROPHIL # 4.6 10^3/ul (1.6-7.5); NEUTROPHILS % 67.4 % (39.0-77.0); NUCLEATED RED BLOOD CELLS # 0.1 10^3/ul (0.0-0.0); NUCLEATED RED BLOOD CELLS% 1.2 /100WBC (0.0-0.0); PLATELET COUNT 97 10^3/UL (140-415); POSITIVE DIFF @See below; RED BLOOD COUNT 2.62 10^6/ul (4.70-6.10); RED CELL DISTRIBUTION WIDTH 17.2 % (11.5-14.5)
[2017-06-28 06:51] LABS: ANION GAP 10 (8-16); BLOOD UREA NITROGEN 9 mg/dl (7-20); CALCIUM 7.7 mg/dl (8.4-10.2); CARBON DIOXIDE 26 mmol/L (21-31); CHLORIDE 108 mmol/L (97-110); CREATININE 0.43 mg/dl (0.61-1.24); GLUCOSE 90 mg/dl (70-220); POTASSIUM 3.5 mmol/L (3.5-5.1); SODIUM 140 mmol/L (135-144)
[2017-06-28] MEDS: GUAIFENESIN LA 600 MG TABSR PO ×2 (08:25→20:25)
[2017-06-28] MEDS: COLLAGENASE 30 GM TUBE TOP (09:00)
[2017-06-28] MEDS: ACETAMINOPHEN 325 MG TAB PO (20:26)
[2017-06-28] MEDS: SOD CHLORIDE 0.9% 500 ML IV (21:40)
[2017-06-29] MEDS: GUAIFENESIN LA 600 MG TABSR PO ×2 (08:22→19:54)
[2017-06-29] MEDS: COLLAGENASE 30 GM TUBE TOP (08:22)
[2017-06-29] MEDS: morphine LIQ (10 MG/5 ML) CUP PO ×2 (10:39→19:54)
[2017-06-29] MEDS: SOD CHLORIDE 0.9% 1,000 ML IV (12:27)
[2017-06-30] MEDS: SOD CHLORIDE 0.9% 1,000 ML IV (06:29)
[2017-06-30] MEDS: COLLAGENASE 30 GM TUBE TOP (08:12)
[2017-06-30] MEDS: GUAIFENESIN LA 600 MG TABSR PO ×2 (08:12→21:00)
[2017-06-30] MEDS: morphine LIQ (10 MG/5 ML) CUP PO (18:08)
[2017-07-01 06:21] LABS: ADD MAN DIFF? NO
[2017-07-01 06:32] LABS: ALANINE AMINOTRANSFERASE 39 IU/L (13-69); ALBUMIN 2.2 g/dl (3.3-4.9); ALBUMIN/GLOBULIN RATIO 0.78; ALKALINE PHOSPHATASE 879 IU/L (42-121); ANION GAP 14 (8-16); ASPARTATE AMINO TRANSFERASE 49 IU/L (15-46); BILIRUBIN,INDIRECT 0.1 mg/dl (0-1.1); BILIRUBIN,TOTAL 0.1 mg/dl (0.2-1.3); BLOOD UREA NITROGEN 8 mg/dl (7-20); CALCIUM 7.8 mg/dl (8.4-10.2); CARBON DIOXIDE 24 mmol/L (21-31); CHLORIDE 107 mmol/L (97-110); CREATININE 0.42 mg/dl (0.61-1.24); GLUCOSE 91 mg/dl (70-220); POTASSIUM 3.6 mmol/L (3.5-5.1); SODIUM 141 mmol/L (135-144)
[2017-07-01 06:43] LABS: WHITE BLOOD COUNT 6.5 10^3/ul (4.8-10.8)
[2017-07-01 06:43] LABS: BASOPHILS % 0.2 % (0.0-2.0); EOSINOPHILS % 0.6 % (0.0-7.0); HEMATOCRIT 23.1 % (42.0-52.0); HEMOGLOBIN 7.2 g/dl (14.0-18.0); LYMPHOCYTES # 1.2 10^3/ul (0.8-2.9); MEAN CORPUSCULAR HEMOGLOBIN 29.6 pg (29.0-33.0); MEAN CORPUSCULAR HGB CONC 31.2 g/dl (32.0-37.0); MEAN CORPUSCULAR VOLUME 95.1 fl (82.0-101.0); MEAN PLATELET VOLUME 9.2 fl (7.4-10.4); MONOCYTE # 0.6 10^3/ul (0.3-0.9); MONOCYTES % 8.9 % (0.0-11.0); NEUTROPHIL # 4.5 10^3/ul (1.6-7.5); NEUTROPHILS % 68.3 % (39.0-77.0); NUCLEATED RED BLOOD CELLS # 0.1 10^3/ul (0.0-0.0); NUCLEATED RED BLOOD CELLS% 1.2 /100WBC (0.0-0.0); PLATELET COUNT 129 10^3/UL (140-415); RED BLOOD COUNT 2.43 10^6/ul (4.70-6.10); RED CELL DISTRIBUTION WIDTH 17.7 % (11.5-14.5)
[2017-07-01 06:52] LABS: INR 1.23; PARTIAL THROMBOPLASTIN TIME 30.9 Sec (25.0-35.0); PROTIME 15.7 Sec (11.9-14.9); PT RATIO 1.2
[2017-07-01] MEDS: GUAIFENESIN LA 600 MG TABSR PO ×2 (08:14→20:07)
[2017-07-01] MEDS: COLLAGENASE 30 GM TUBE TOP (08:14)
[2017-07-01 21:10] LABS: IMMEDIATE SPIN CROSSMATCH 1 2
[2017-07-01] MEDS: morphine LIQ (10 MG/5 ML) CUP PO (21:35)
[2017-07-02 07:03] LABS: ADD MAN DIFF? NO
[2017-07-02 07:21] LABS: WHITE BLOOD COUNT 5.8 10^3/ul (4.8-10.8)
[2017-07-02 07:21] LABS: ABNORMAL IP MESSAGE 1; BASOPHILS % 0.2 % (0.0-2.0); EOSINOPHILS % 0.7 % (0.0-7.0); HEMATOCRIT 27.9 % (42.0-52.0); HEMOGLOBIN 8.9 g/dl (14.0-18.0); LYMPHOCYTES # 1.2 10^3/ul (0.8-2.9); LYMPHOCYTES % 20.2 % (15.0-51.0); MEAN CORPUSCULAR HEMOGLOBIN 29.2 pg (29.0-33.0); MEAN CORPUSCULAR HGB CONC 31.9 g/dl (32.0-37.0); MEAN CORPUSCULAR VOLUME 91.5 fl (82.0-101.0); MONOCYTE # 0.5 10^3/ul (0.3-0.9); MONOCYTES % 8.2 % (0.0-11.0); NEUTROPHIL # 3.8 10^3/ul (1.6-7.5); NEUTROPHILS % 65.5 % (39.0-77.0); NUCLEATED RED BLOOD CELLS # 0.1 10^3/ul (0.0-0.0); NUCLEATED RED BLOOD CELLS% 1.9 /100WBC (0.0-0.0); PLATELET COUNT 119 10^3/UL (140-415); POSITIVE DIFF @See below; RED BLOOD COUNT 3.05 10^6/ul (4.70-6.10); RED CELL DISTRIBUTION WIDTH 18.4 % (11.5-14.5)
[2017-07-02 07:44] LABS: ANION GAP 13 (8-16); BLOOD UREA NITROGEN 6 mg/dl (7-20); CALCIUM 7.9 mg/dl (8.4-10.2); CARBON DIOXIDE 25 mmol/L (21-31); CHLORIDE 106 mmol/L (97-110); CREATININE 0.33 mg/dl (0.61-1.24); GLUCOSE 86 mg/dl (70-220); POTASSIUM 3.3 mmol/L (3.5-5.1); SODIUM 141 mmol/L (135-144)
[2017-07-02] MEDS: COLLAGENASE 30 GM TUBE TOP (09:08)
[2017-07-02] MEDS: GUAIFENESIN LA 600 MG TABSR PO ×2 (09:08→20:52)
[2017-07-02] MEDS: POTASSIUM CHLORIDE (SR) 20 MEQ TAB PO (10:02)
[2017-07-02] MEDS: morphine LIQ (10 MG/5 ML) CUP PO ×2 (12:30→20:54)
[2017-07-02] MEDS: CEFTRIAXONE 1 GM/50 ML (PMX) 50 ML IVPB (14:12)
[2017-07-03] MEDS: GUAIFENESIN LA 600 MG TABSR PO ×2 (08:36→20:02)
[2017-07-03] MEDS: COLLAGENASE 30 GM TUBE TOP (08:36)
[2017-07-03] MEDS: morphine LIQ (10 MG/5 ML) CUP PO ×2 (09:42→19:57)
[2017-07-03] MEDS: CEFTRIAXONE 1 GM/50 ML (PMX) 50 ML IVPB (13:01)
[2017-07-03] MEDS: METOPROLOL 25 MG TAB PO (22:52)
[2017-07-04 05:52] LABS: ADD MAN DIFF? NO
[2017-07-04 05:53] LABS: WHITE BLOOD COUNT 7.1 10^3/ul (4.8-10.8)
[2017-07-04 05:53] LABS: BASOPHILS % 0.1 % (0.0-2.0); EOSINOPHILS % 0.3 % (0.0-7.0); HEMATOCRIT 29.9 % (42.0-52.0); HEMOGLOBIN 9.6 g/dl (14.0-18.0); LYMPHOCYTES # 1.2 10^3/ul (0.8-2.9); LYMPHOCYTES % 17.5 % (15.0-51.0); MEAN CORPUSCULAR HEMOGLOBIN 29.5 pg (29.0-33.0); MEAN CORPUSCULAR HGB CONC 32.1 g/dl (32.0-37.0); MEAN PLATELET VOLUME 9.3 fl (7.4-10.4); MONOCYTE # 0.6 10^3/ul (0.3-0.9); MONOCYTES % 8.6 % (0.0-11.0); NEUTROPHIL # 4.9 10^3/ul (1.6-7.5); NEUTROPHILS % 68.7 % (39.0-77.0); NUCLEATED RED BLOOD CELLS # 0.1 10^3/ul (0.0-0.0); NUCLEATED RED BLOOD CELLS% 1.8 /100WBC (0.0-0.0); PLATELET COUNT 119 10^3/UL (140-415); RED BLOOD COUNT 3.25 10^6/ul (4.70-6.10)
[2017-07-04 06:28] LABS: ANION GAP 12 (8-16); BLOOD UREA NITROGEN 11 mg/dl (7-20); CALCIUM 7.7 mg/dl (8.4-10.2); CARBON DIOXIDE 27 mmol/L (21-31); CHLORIDE 106 mmol/L (97-110); CREATININE 0.42 mg/dl (0.61-1.24); GLUCOSE 105 mg/dl (70-220); SODIUM 141 mmol/L (135-144)
[2017-07-04] MEDS: COLLAGENASE 30 GM TUBE TOP (09:00)
[2017-07-04] MEDS: GUAIFENESIN LA 600 MG TABSR PO ×2 (09:40→20:45)
[2017-07-04] MEDS: METOPROLOL 25 MG TAB PO ×2 (09:41→20:45)
[2017-07-04] MEDS: morphine LIQ (10 MG/5 ML) CUP PO ×2 (09:43→15:23)
[2017-07-04] MEDS: CEFTRIAXONE 1 GM/50 ML (PMX) 50 ML IVPB (13:02)
[2017-07-05] MEDS: COLLAGENASE 30 GM TUBE TOP (08:58)
[2017-07-05] MEDS: GUAIFENESIN LA 600 MG TABSR PO ×2 (08:58→21:05)
[2017-07-05] MEDS: METOPROLOL 25 MG TAB PO (08:58)
[2017-07-05] MEDS ORDERED: ONDANSETRON 4 MG INJ IV (13:00)
[2017-07-05] MEDS: CEFTRIAXONE 1 GM/50 ML (PMX) 50 ML IVPB (13:47)
[2017-07-05] MEDS: morphine LIQ (10 MG/5 ML) CUP PO (17:40)
[2017-07-05] MEDS ORDERED: METOPROLOL 25 MG TAB PO (21:00)
[2017-07-05] MEDS: METOPROLOL 50 MG TAB PO (21:11)
[2017-07-06] MEDS: morphine LIQ (10 MG/5 ML) CUP PO ×2 (03:48→20:15)
[2017-07-06] MEDS: COLLAGENASE 30 GM TUBE TOP (09:49)
[2017-07-06] MEDS: GUAIFENESIN LA 600 MG TABSR PO ×2 (09:49→20:13)
[2017-07-06] MEDS: METOPROLOL 50 MG TAB PO ×2 (09:50→20:14)
[2017-07-07] MEDS: GUAIFENESIN LA 600 MG TABSR PO ×2 (08:54→21:47)
[2017-07-07] MEDS: METOPROLOL 50 MG TAB PO ×2 (08:55→21:48)
[2017-07-07] MEDS: COLLAGENASE 30 GM TUBE TOP (09:00)
[2017-07-07] MEDS: morphine LIQ (10 MG/5 ML) CUP PO (18:32)
[2017-07-08] MEDS: GUAIFENESIN LA 600 MG TABSR PO ×2 (08:54→21:04)
[2017-07-08] MEDS: METOPROLOL 50 MG TAB PO ×2 (08:54→21:03)
[2017-07-08] MEDS: COLLAGENASE 30 GM TUBE TOP (10:15)
[2017-07-08] MEDS: morphine LIQ (10 MG/5 ML) CUP PO (16:48)
[2017-07-08] MEDS: DIGOXIN 500 MCG INJ IV (16:55)
[2017-07-08 17:52] LABS: ADD MAN DIFF? NO
[2017-07-08 17:56] LABS: ABNORMAL IP MESSAGE 1; BASOPHILS % 0.1 % (0.0-2.0); EOSINOPHILS % 0.1 % (0.0-7.0); HEMATOCRIT 28.6 % (42.0-52.0); HEMOGLOBIN 8.9 g/dl (14.0-18.0); LYMPHOCYTES # 1.5 10^3/ul (0.8-2.9); MEAN CORPUSCULAR HEMOGLOBIN 29.2 pg (29.0-33.0); MEAN CORPUSCULAR HGB CONC 31.1 g/dl (32.0-37.0); MEAN CORPUSCULAR VOLUME 93.8 fl (82.0-101.0); MEAN PLATELET VOLUME 9.2 fl (7.4-10.4); MONOCYTE # 0.6 10^3/ul (0.3-0.9); MONOCYTES % 7.7 % (0.0-11.0); NEUTROPHIL # 4.7 10^3/ul (1.6-7.5); NEUTROPHILS % 65.6 % (39.0-77.0); NUCLEATED RED BLOOD CELLS # 0.2 10^3/ul (0.0-0.0); NUCLEATED RED BLOOD CELLS% 3.4 /100WBC (0.0-0.0); PLATELET COUNT 169 10^3/UL (140-415); POSITIVE DIFF @See below; RED BLOOD COUNT 3.05 10^6/ul (4.70-6.10); RED CELL DISTRIBUTION WIDTH 17.6 % (11.5-14.5)
[2017-07-08 17:56] LABS: WHITE BLOOD COUNT 7.1 10^3/ul (4.8-10.8)
[2017-07-08 18:16] LABS: ANION GAP 12 (8-16); BLOOD UREA NITROGEN 25 mg/dl (7-20); CALCIUM 8.2 mg/dl (8.4-10.2); CARBON DIOXIDE 27 mmol/L (21-31); CHLORIDE 105 mmol/L (97-110); GLUCOSE 104 mg/dl (70-220); MAGNESIUM 2.2 mg/dl (1.7-2.5); POTASSIUM 3.9 mmol/L (3.5-5.1); SODIUM 140 mmol/L (135-144)
[2017-07-08 22:34] LABS: ANION GAP 12 (8-16); BLOOD UREA NITROGEN 24 mg/dl (7-20); CARBON DIOXIDE 26 mmol/L (21-31); CHLORIDE 103 mmol/L (97-110); CREATININE 0.51 mg/dl (0.61-1.24); GLUCOSE 109 mg/dl (70-220); MAGNESIUM 2.2 mg/dl (1.7-2.5); POTASSIUM 3.8 mmol/L (3.5-5.1); SODIUM 137 mmol/L (135-144)
[2017-07-08] MEDS: DILTIAZEM 25 MG INJ IV (22:59)
[2017-07-09] MEDS: METOPROLOL 5 MG INJ IV ×2 (00:30→02:30)
[2017-07-09] MEDS: POTASSIUM CHLORIDE (SR) 20 MEQ TAB PO (00:30)
[2017-07-09] MEDS: SOD CHLORIDE 0.9% 250 ML IV (00:30)
[2017-07-09] MEDS: GUAIFENESIN LA 600 MG TABSR PO ×2 (08:48→20:33)
[2017-07-09] MEDS: METOPROLOL 50 MG TAB PO ×2 (08:49→20:33)
[2017-07-09] MEDS: COLLAGENASE 30 GM TUBE TOP (08:49)
[2017-07-09] MEDS: morphine LIQ (10 MG/5 ML) CUP PO (14:51)
[2017-07-09] MEDS: SOD CHLORIDE 0.9% 1,000 ML IV (20:32)
[2017-07-10] MEDS: COLLAGENASE 30 GM TUBE TOP (08:41)
[2017-07-10] MEDS: SOD CHLORIDE 0.9% 1,000 ML IV ×2 (08:42→21:37)
[2017-07-10] MEDS: GUAIFENESIN LA 600 MG TABSR PO ×2 (08:48→21:00)
[2017-07-10] MEDS: METOPROLOL 50 MG TAB PO ×2 (08:48→20:24)
[2017-07-10 09:53] LABS: ADD MAN DIFF? NO
[2017-07-10 09:55] LABS: ABNORMAL IP MESSAGE 1; MEAN CORPUSCULAR HEMOGLOBIN 29.1 pg (29.0-33.0); MEAN CORPUSCULAR HGB CONC 30.8 g/dl (32.0-37.0); MEAN CORPUSCULAR VOLUME 94.5 fl (82.0-101.0); MEAN PLATELET VOLUME 8.6 fl (7.4-10.4); NUCLEATED RED BLOOD CELLS% 3.7 /100WBC (0.0-0.0); PLATELET COUNT 119 10^3/UL (140-415); POSITIVE DIFF @See below; RED BLOOD COUNT 2.75 10^6/ul (4.70-6.10); RED CELL DISTRIBUTION WIDTH 18.1 % (11.5-14.5)
[2017-07-10 09:55] LABS: WHITE BLOOD COUNT 8.9 10^3/ul (4.8-10.8)
[2017-07-10 10:16] LABS: ALANINE AMINOTRANSFERASE 38 IU/L (13-69); ALBUMIN 2.4 g/dl (3.3-4.9); ALBUMIN/GLOBULIN RATIO 0.77; ALKALINE PHOSPHATASE 1322 IU/L (42-121); ANION GAP 13 (8-16); ASPARTATE AMINO TRANSFERASE 182 IU/L (15-46); BILIRUBIN,INDIRECT 0.5 mg/dl (0-1.1); BILIRUBIN,TOTAL 0.5 mg/dl (0.2-1.3); BLOOD UREA NITROGEN 15 mg/dl (7-20); CALCIUM 7.6 mg/dl (8.4-10.2); CARBON DIOXIDE 26 mmol/L (21-31); CHLORIDE 107 mmol/L (97-110); CREATININE 0.41 mg/dl (0.61-1.24); GLUCOSE 127 mg/dl (70-220); POTASSIUM 3.6 mmol/L (3.5-5.1); SODIUM 142 mmol/L (135-144); TOTAL PROTEIN 5.5 g/dl (6.1-8.1)
[2017-07-10] MEDS ORDERED: METOPROLOL 5 MG INJ (20:19)
[2017-07-10] MEDS: morphine LIQ (10 MG/5 ML) CUP PO (20:25)
[2017-07-10] MEDS: DILTIAZEM 25 MG INJ IV (20:25)
[2017-07-10] MEDS ORDERED: ADENOSINE 2 ML (20:33)
[2017-07-10] MEDS: METOPROLOL 5 MG INJ IV (20:36)
[2017-07-10] MEDS: ADENOSINE 6 MG INJ IV (20:37)
[2017-07-10] MEDS: SOD CHLORIDE 0.9% 500 ML IV (21:35)
[2017-07-10] MEDS: SOD CHLORIDE 0.9% 250 ML IV (23:38)
[2017-07-11] MEDS: COLLAGENASE 30 GM TUBE TOP (09:00)
[2017-07-11] MEDS: GUAIFENESIN LA 600 MG TABSR PO (09:29)
[2017-07-11] MEDS: METOPROLOL 50 MG TAB PO (09:29)
[2017-07-11] MEDS: AMIODARONE 150MG/D5W BOLUS 100 ML IV (13:41)
[2017-07-11] MEDS: AMIODARONE 200 MG TAB PO (14:28)
== END 2017-07-11 16:52 | DRG 723 ==
LOC: PP2 21:25 → MS4 06-19 16:37 → PP2 06-27 18:10 → MS4 07-08 18:05 → E/R 14:49
PROC: 30233N1 Transfusion of Nonautologous Red Blood Cells into Peripheral Vein, Percutaneous Approach (ICD-10-PCS; principal; 2017-06-09)
DX: C61 Malignant neoplasm of prostate (principal); N39.0 Urinary tract infection, site not specified; C79.51 Secondary malignant neoplasm of bone; N13.30 Unspecified hydronephrosis; I48.92 Unspecified atrial flutter; D63.0 Anemia in neoplastic disease; I10 Essential (primary) hypertension; R31.9 Hematuria, unspecified; D50.0 Iron deficiency anemia secondary to blood loss (chronic); N32.0 Bladder-neck obstruction; N32.3 Diverticulum of bladder; B96.20 Unspecified Escherichia coli [E. coli] as the cause of diseases classified elsewhere; I48.91 Unspecified atrial fibrillation; B95.2 Enterococcus as the cause of diseases classified elsewhere; R74.0 Nonspecific elevation of levels of transaminase and lactic acid dehydrogenase [LDH]; E80.6 Other disorders of bilirubin metabolism; Z66 Do not resuscitate; R59.1 Generalized enlarged lymph nodes; D69.6 Thrombocytopenia, unspecified; Z75.1 Person awaiting admission to adequate facility elsewhere; E86.0 Dehydration
CPT/HCPCS: 36415; 36430; 71045; 71275; 74176; 80048; 80053; 80076; 81001; 82270; 82550; 82553; 82728; 82962; 83540; 83605; 83735; 84100; 84436; 84443; 84479; 84484; 85025; 85378; 85610; 85730; 86644; 86850; 86900; 86901; 86920; 87040; 87081; 87086; 93005; 93306; 96361; 96374; 97110; 97162; 97163; 97530; 99291-25